=== PATIENT | male | born 1990 | race Two or more races ===

== ENCOUNTER 2021-06-13 12:00 | Emergency (ER) | payer SELFPAY ==
[~2021-06-13] VITALS: Ht 175.3 cm; Wt 103.4 kg
[2021-06-13] MEDS ORDERED: LORAZEPAM 1 MG TABLET ONE (12:06)
--- NOTE | 2021-06-13 12:10 | NUR ---
[email or web address], from work, having panic attack, no hx. On room air, breathing evenly and unlabored. Connected to the monitor and pulse ox. Kept comfortable, will continue to monitor accordingly.
[2021-06-13] MEDS ORDERED: LORAZEPAM 1 MG TABLET PO ONE (12:30)
[2021-06-13 12:36] VITALS: BP 132/76
--- NOTE | 2021-06-13 12:36 | NUR ---
The patient is alert and oriented x4. Denies feeling anxious. In room air and denies SOB. Respiration regular and unlabored. Denies pain. Patient discharged to home in stable condition. Written and verbal after care instructions given. Patient verbalizes understanding of instruction.
== END 2021-06-13 12:37 | disposition home or self-care (01) ==
LOC: ER 12:02
DX: F41.9 Anxiety disorder, unspecified (principal)